=== PATIENT | male | born 1955 | race Caucasian/White ===

== ENCOUNTER → 2025-08-22 09:10 | Outpatient (REF) | payer MEDICARE, SELFPAY | LOC: HWRAD 09:10 | PROVIDERS: ATTENDING PHYSICIAN Specialist; FAMILY PHYSICIAN Family Medicine | DX: R97.20 Elevated prostate specific antigen [PSA] (principal); R31.21 Asymptomatic microscopic hematuria | CPT/HCPCS: 76770 ==